=== PATIENT | male | born 1970 | race Caucasian/White ===

== ENCOUNTER 2020-10-14 15:29 | Emergency (ER) | payer OTHER ==
[~2020-10-14 15:29] MED LIST: HYCODAN5 ML PO; IBUPROFEN800 MG PO; MEDROL 4MG DOSEP4 MG PO; NAPROXEN500 MG PO; VENTOLIN HFA IN18 GM INH; ZPAK PO
[2020-10-14] MEDS ORDERED: NAPROXEN500 MG PO (16:31)
== END 2020-10-14 16:50 | disposition home or self-care (01) ==
LOC: FER 15:29
DX: S96.912A Strain of unspecified muscle and tendon at ankle and foot level, left foot, initial encounter (principal); F17.210 Nicotine dependence, cigarettes, uncomplicated; Z88.0 Allergy status to penicillin; X58.XXXA Exposure to other specified factors, initial encounter
CPT/HCPCS: 73600; 73620